=== PATIENT | female | born 1980 | race African-American/Black ===

== ENCOUNTER 2021-05-26 18:46 | Emergency (ER) | payer OTHER, SELFPAY ==
--- NOTE | 2021-05-26 18:48 | ED.URI ---
HPI - URI/Sore Throat General Chief Complaint: Upper Respiratory Infection Stated Complaint: sore throat/heartburn Time Seen by Provider: 05/26/21 18:48 Source: patient and RN notes reviewed History of Present Illness HPI Narrative: Patient is a 40-year-old female who presents the urgent care with complaints of heartburn and sore throat. Patient states that she has a history of heartburn and ate something this morning that did not sit well with her . Patient is aware that that was a triggering food for her but states she did not have anything else in the home to eat . Patient states that she has taken Yomaira-Aynor which has relieved some of the symptoms. Patient denies of any chest pain or radiation of the heartburn. States that she has had a sore throat for the last 4 days and is more concerned with possible strep throat. Patient denies of any other upper respiratory symptoms, fever, nausea, vomiting, headache. Patient denies of any known contacts with Covid or strep. Denies of any other illness in the home. No other acute complaints. No acute distress noted. Patient aware of the plan of care. Some parts of this dictation were generated by voice recognition software and may contain typographical and/or grammatical inaccuracies. Related Data Home Medications Medication Instructions Recorded Confirmed amlodipine 5 mg PO DAILY 05/26/21 05/26/21 Allergies Allergy/AdvReac Type Severity Reaction Status Date / Time lisinopril Allergy Swelling Verified 05/26/21 18:59 of Lip/Tongue/Throat Review of Systems Review of Systems: CONSTITUTIONAL: Denies fever, chills, or sweats. EYES: Denies visual changes, redness, or discharge. ENT: Reports of sore throat and postnasal drainage CARDIOVASCULAR: Denies chest pain, palpitations, or edema. RESPIRATORY: Denies cough or dyspnea. GASTROINTESTINAL: Denies abdominal pain, nausea, vomiting, or diarrhea. GENITOURINARY: Denies dysuria or hematuria. SKIN: Denies rash or itching. MUSCULOSKELETAL: Denies back pain, joint pain, or myalgia. NEUROLOGIC: Denies headache, numbness, or weakness. All other systems reviewed are negative, except as documented in HPI. PMFSH Comments At the time of my signature, I reviewed and agree with the nursing past medical, surgical, social, and family history. There is no relevant family history pertinent to the patient complaint. Exam Narrative: GENERAL: This is a well-nourished, well-developed patient, in no apparent distress. HEAD: normocephalic, atraumatic. EYES: PERRL. Sclera clear/white. Vision is grossly intact. EARS: External ears normal, auditory canals clear and without drainage, TMs normal without perforation. Hearing grossly intact. NOSE: External nose normal with no obvious nasal discharge, nares without redness, no rhinorrhea. THROAT: Mucous membranes moist, mild erythema noted posterior oropharynx with moderate postnasal drainage. NECK: Neck supple, non-tender without lymphadenopathy CARDIOVASCULAR: Regular rate and rhythm without murmurs, gallops, or rubs. RESPIRATORY: Clear to auscultation. Breath sounds equal bilaterally. No wheezes, rales, or rhonchi. SKIN: warm, intact with no suspicious lesions or rash, good texture and turgor. NEURO: awake, alert, and oriented to person, place and time. There were no obvious focal neurologic abnormalities. EXTREMITIES: No clubbing, cyanosis, or edema Course Vital Signs Vital signs: Vital Signs Temperature 98.0 F 05/26/21 18:55 Pulse Rate 90 05/26/21 18:55 Respiratory Rate 16 05/26/21 18:55 Blood Pressure 133/91 H 05/26/21 18:55 Pulse Oximetry 100 05/26/21 18:55 Temperature 98.0 F 05/26/21 18:55 Pulse Rate 90 05/26/21 18:55 Respiratory Rate 16 05/26/21 18:55 Blood Pressure 133/91 H 05/26/21 18:55 Pulse Oximetry 100 05/26/21 18:55 Reviewed-patient is informed that they may have pre-hypertension or hypertension based on a blood pressure reading in the depa
[2021-05-26 18:55] VITALS: BP 133/91; PULSE 90; RESP 16; TEMP 36.7; O2SAT 100
== END 2021-05-26 19:18 | disposition home or self-care (01) ==
PROVIDERS: Emergency Provider Nurse Practitioner Family; PCP Emergency Medicine
DX: J02.9 Acute pharyngitis, unspecified (principal); I10 Essential (primary) hypertension
CPT/HCPCS: 87081; 87880; 99213; G0463